=== PATIENT | female | born 1970 | race Native Hawaiian/Other Pacific Islander ===

== ENCOUNTER 2021-02-16 14:06 | Outpatient (CLI) | payer OTHER | END 2021-02-16 23:20 | disposition home or self-care (01) | LOC: RAD 14:06 | PROVIDERS: ATTEND Nurse Practitioner Family | DX: M54.17 Radiculopathy, lumbosacral region (principal) ==

== ENCOUNTER 2022-01-27 15:20 | Emergency (ER) | payer OTHER ==
[~2022-01-27] VITALS: Ht 167.6 cm; Wt 90.7 kg
[2022-01-27 18:26] VITALS: BP 140/78; TEMP 97.5
== END 2022-01-27 18:31 | disposition home or self-care (01) ==
LOC: ED 15:20
DX: S30.0XXA Contusion of lower back and pelvis, initial encounter (principal); W18.39XA Other fall on same level, initial encounter; Y92.89 Other specified places as the place of occurrence of the external cause
CPT/HCPCS: 96372; 99283; J2175; J2405

== ENCOUNTER 2022-02-01 09:58 | Outpatient (CLI) | payer OTHER | END 2022-02-01 22:06 | disposition home or self-care (01) | LOC: RAD 09:58 | PROVIDERS: ATTEND Nurse Practitioner Family | DX: S69.91XA Unspecified injury of right wrist, hand and finger(s), initial encounter (principal); Y92.9 Unspecified place or not applicable ==

== ENCOUNTER 2023-01-02 14:16 | Emergency (ER) | payer OTHER ==
[~2023-01-02] VITALS: Ht 167.6 cm; Wt 104.3 kg
[2023-01-02 14:20] VITALS: BP 146/82; TEMP 97.2
[2023-01-02 15:00] LABS: POTASSIUM 3.7 mmol/L (3.6-5.2)
[2023-01-02 15:41] LABS: PLATELET COUNT 322 K/uL (152-353)
== END 2023-01-02 17:31 | disposition home or self-care (01) ==
LOC: ED 14:16
PROVIDERS: Emergency Medicine Emergency Medical Services
DX: R11.2 Nausea with vomiting, unspecified (principal); N13.2 Hydronephrosis with renal and ureteral calculous obstruction; Z87.442 Personal history of urinary calculi; Z98.890 Other specified postprocedural states
CPT/HCPCS: 36415; 80053; 81002; 85027; 96361; 96374; 96375; 96376; 99284; J1170; J2405

== ENCOUNTER 2023-01-04 00:16 | Emergency (ER) | payer OTHER ==
[~2023-01-04] VITALS: Ht 167.6 cm; Wt 99.8 kg
[2023-01-04 00:36] VITALS: TEMP 98.8
[2023-01-04 04:15] VITALS: BP 128/83
== END 2023-01-04 04:15 | disposition home or self-care (01) ==
LOC: ED 00:16
DX: N13.2 Hydronephrosis with renal and ureteral calculous obstruction (principal); Z98.890 Other specified postprocedural states
CPT/HCPCS: 96361; 96372; 96374; 96375; 96376; 99284; J1885; J2270; J2405; J2550